=== PATIENT | female | born 1985 | race Caucasian/White ===

== ENCOUNTER 2016-08-22 01:30 | Emergency (ER) | payer MEDICAID ==
[2016-08-22 01:33] VITALS: BP 144/82; PULSE 132; RESP 18; TEMP 98.5; O2SAT 100
[2016-08-22 01:43] VITALS: RESP 20; O2SAT 100
[2016-08-22] MEDS ORDERED: TRAZ50TA12 PO (01:43)
[2016-08-22] MEDS ORDERED: BUSP5TAB PO (01:43)
[2016-08-22 01:44] VITALS: BP_SYST 130; BP_SYST 136; BP_DIAS 79; BP_DIAS 83
[2016-08-22] MEDS ORDERED: ASPIRIN 81 MG CHEW TAB PO ONE (01:45)
[2016-08-22] MEDS ORDERED: LORazepam 2 MG/ML VIAL IV PUSH ONE (01:45)
[2016-08-22] MEDS ORDERED: SODIUM CHLORIDE 0.9% FLUSH 5 ML FLUSH IVF PRN (01:45)
--- NOTE | 2016-08-22 01:54 | PD ---
HPI . Chest pain and shortness of breath Chief Complaint: Alcohol/Drug Intoxication Time Seen by Provider: 01:39 Travel History International Travel<30 days: No Contact w/Intl Traveler<30days: No History of Present Illness HPI Patient presents complaining with chest pain shortness of breath which started after using meth and Percocet. She states that her mouth feels dry. She states that she feels like she is going to . PFSH Past Medical History Medical History: Denies Significant Hx Diminished Hearing: No Tetanus Vaccination: Unknown Influenza Vaccination: No ?: Unknown : 4 Para: 2 Miscarriage: 0 : 1 Past Surgical History Surgical History: No Previous Surgery Section: Yes (x 2) Social History Alcohol Use: No Tobacco Use: Yes Substance Use: No Allergies-Medications (Allergen,Severity, Reaction): Coded Allergies: No Known Allergies (Unverified , 08/22/16) Reported Meds & Prescriptions Reported Meds & Active Scripts Active Reported Trazodone (Trazodone HCl) 50 Mg Tab 50 Mg PO HS Buspirone (Buspirone HCl) 5 Mg Tab 5 Mg PO BID Review of Systems Except as stated in HPI: all other systems reviewed are Neg General / Constitutional: No: Fever, Chills HENT: Positive: Other (dry mouth) Cardiovascular: Positive: Chest Pain or Discomfort Respiratory: Positive: Shortness of Breath Psychiatric: Positive: Anxiety, Substance Abuse Physical Exam Narrative GENERAL: Anxious appearing female SKIN: Warm and dry. HEAD: Atraumatic. Normocephalic. EYES: Pupils equal and round. ENT: No nasal bleeding or discharge. Mucous membranes pink and moist. NECK: Trachea midline. CARDIOVASCULAR: Sinus tachycardia. RESPIRATORY: No accessory muscle use. Lungs are clear with full air movement throughout. GASTROINTESTINAL: Abdomen soft, non-tender, nondistended. MUSCULOSKELETAL: No obvious deformities. No edema. NEUROLOGICAL: Awake and alert. No obvious cranial nerve deficits. Motor grossly within normal limits. Normal speech. PSYCHIATRIC: Appropriate mood and affect; insight and judgment poor. Data Data Last Documented VS Vital Signs Date Time Temp Pulse Resp B/P Pulse Ox O2 Delivery O2 Flow Rate FiO2 08/22/16 01:44 130/83 136/79 08/22/16 01:43 20 100 Room Air 08/22/16 01:40 123 08/22/16 01:33 98.5 Orders Electrocardiogram (08/22/16 01:39) Basic Metabolic Panel (Bmp) (08/22/16 01:39) Ckmb (Isoenzyme) Profile (08/22/16 01:39) Complete Blood Count With Diff (08/22/16 01:39) Magnesium (Mg) (08/22/16 01:39) Troponin I (08/22/16 01:39) Chest, Single Ap (08/22/16 01:39) Ecg Monitoring (08/22/16 01:39) Bilateral Bp Monitoring (08/22/16 01:39) Iv Access Insert/Monitor (08/22/16 01:39) Oximetry (08/22/16 01:39) Oxygen Administration (08/22/16 01:39) Aspirin Chew (Aspirin Chew) (08/22/16 01:45) Sodium Chloride 0.9% Flush (Ns Flush) (08/22/16 01:45) Lorazepam Inj (Ativan Inj) (08/22/16 01:45) Ed Urine Pregnancytest Poc (08/22/16 01:39) Labs Laboratory Tests Test 08/22/16 01:55 White Blood Count 8.8 TH/MM3 Red Blood Count 4.93 MIL/MM3 Hemoglobin 13.9 GM/DL Hematocrit 40.9 % Mean Corpuscular Volume 83.0 FL Mean Corpuscular Hemoglobin 28.3 PG Mean Corpuscular Hemoglobin 34.1 % Concent Red Cell Distribution Width 13.9 % Platelet Count 300 TH/MM3 Mean Platelet Volume 6.7 FL Neutrophils (%) (Auto) 71.5 % Lymphocytes (%) (Auto) 20.9 % Monocytes (%) (Auto) 7.0 % Eosinophils (%) (Auto) 0.5 % Basophils (%) (Auto) 0.1 % Neutrophils # (Auto) 6.3 TH/MM3 Lymphocytes # (Auto) 1.8 TH/MM3 Monocytes # (Auto) 0.6 TH/MM3 Eosinophils # (Auto) 0.0 TH/MM3 Basophils # (Auto) 0.0 TH/MM3 CBC Comment DIFF FINAL Differential Comment Sodium Level 134 MEQ/L Potassium Level 3.0 MEQ/L Chloride Level 98 MEQ/L Carbon Dioxide Level 26.9 MEQ/L Anion Gap 9 MEQ/L Blood Urea Nitrogen 6 MG/DL Creatinine 0.73 MG/DL Estimat Glomerular Filtration 93 ML/MIN Rate Random Glucose 132 MG/DL Calcium Level 8.9 MG/DL Magnesium Level 1.8 MG/DL Total Creatine Kinase 97 U/L Troponin I LESS THAN 0.02 NG/ML MDM Medical Decision Making Medical Screen Exam Complete: Yes Emergency Medical Condition: Yes Interpretation(s) EKG shows sinus tachycardia at 119. No ST segment elevation or depression. No old EKGs for comparison. Differential Diagnosis Differential diagnosis of chest pain includes but is not limited to musculoskeletal pain, pulmonary embolism, acute coronary syndrome, pneumonia, pleurisy Narrative Course Patient presents for evaluation of chest pain, shortness of breath and dry mouth after using methamphetamine and Percocet. CBC is normal. Cardiac enzymes are negative. Chest x-ray to my interpretation is negative for infiltrate, pneumothorax or pulmonary edema. Chest x-ray has subsequently been read by the radiologist as negative. Is patient is stable for discharge to home. Critical Care Narrative Aggregate critical care time was 30 minutes. Time to perform other separately billable procedures was not included in the critical care time. My time did not include minutes spent treating any other patients simultaneously or on activities that did not directly contribute to the patient's treatment. The services I provided to this patient were to treat and/or prevent clinically significant deterioration that could result in: Cardiac dysrhythmia, sudden cardiac , ACS I provided critical care services requiring my management, as noted below: Chart data review, documentation time, medication orders and management, vital sign assessments/reviewing monitor data, ordering and reviewing lab tests, ordering and interpreting/reviewing x-rays and diagnostic studies, care of the patient and discussion of the patient with the admitting physicians. Diagnosis Primary Impression: Chest pain Qualified Code: R07.9 - Chest pain, unspecified type Additional Impression: Substance abuse Patient Instructions: Chest Pain (ED), General Instructions, Medical Clearance for Substance Abuse Treatment (ED), Noncardiac Chest Pain (ED) Disposition: 01 DISCHARGE HOME Condition: Stable Janny Jain MD Aug 22, 2016 01:53
[2016-08-22 02:00] LABS: AUTOMATED NEUTROPHIL # 6.3 TH/MM3 (1.8-7.7); BASOPHIL % 0.1 % (0.0-2.0); EOSINOPHIL % 0.5 % (0.0-4.0); HEMATOCRIT 40.9 % (35.0-46.0); HEMO FLAGS DIFF FINAL; LYMPH % 20.9 % (9.0-44.0); LYMPHOCYTE # 1.8 TH/MM3 (1.0-4.8); MEAN CORPUSCULAR HEMOGLOBIN 28.3 PG (27.0-34.0); MEAN CORPUSCULAR HGB CONC 34.1 % (32.0-36.0); NEUT % 71.5 % (16.0-70.0); PLATELET COUNT 300 TH/MM3 (150-450); RED BLOOD COUNT 4.93 MIL/MM3 (4.00-5.30); RED CELL DISTRIBUTION WIDTH 13.9 % (11.6-17.2); WHITE BLOOD COUNT 8.8 TH/MM3 (4.0-11.0)
[2016-08-22 02:19] LABS: ANION GAP 9 MEQ/L (5-15); BICARBONATE 26.9 MEQ/L (21.0-32.0); BLOOD UREA NITROGEN 6 MG/DL (7-18); CHLORIDE 98 MEQ/L (98-107); GLOMERULAR FILTRATION RATE 93 ML/MIN (>89); MAGNESIUM 1.8 MG/DL (1.5-2.5); SODIUM (NA) 134 MEQ/L (136-145)
[2016-08-22 02:26] LABS: CREATINE KINASE 97 U/L (26-192)
--- NOTE | 2016-08-22 02:50 | RADRPT ---
EXAM DATE/TIME: 08/22/2016 02:04 [facility] COMPARISON: No previous studies available for comparison. INDICATIONS : Short of breath. MEDICAL HISTORY : None. SURGICAL HISTORY : Tubal ligation. ENCOUNTER: Initial ACUITY: 1 day PAIN SCORE: 0/10 LOCATION: Bilateral chest FINDINGS: A single view of the chest demonstrates the lungs to be symmetrically aerated without evidence of mas s, infiltrate or effusion. The cardiomediastinal contours are unremarkable. Osseous structures are intact. CONCLUSION: No acute disease. Khanh Cornell MD on August 22, 2016 at 2:48 Board Certified Radiologist. This report was verified electronically.
--- NOTE | 2016-08-22 19:54 | EKG ---
Date Performed: 08/22/2016 Time Performed: 01:43:04 PTAGE: 31 years EKG: SINUS TACHYCARDIA NONSPECIFIC ST & T-WAVE ABNORMALITY ABNORMAL RHYTHM ECG PREVIOUS TRACING : 09/01/2001 14.54 Compared to the previous tracing, rate faster DOCTOR: Susie Gould Interpretating Date/Time 08/22/2016 19:52:55
== END 2016-08-22 03:44 | disposition home or self-care (01) ==
LOC: NEPC 01:30
DX: R07.9 Chest pain, unspecified (principal); R06.02 Shortness of breath; F15.10 Other stimulant abuse, uncomplicated; F19.10 Other psychoactive substance abuse, uncomplicated; Z72.0 Tobacco use
CPT/HCPCS: 71010; 80048; 82550; 83735; 84484; 84703; 85025; 93005; 96374; 99291; J2060

== ENCOUNTER 2016-09-30 01:08 | Emergency (ER) | payer MEDICAID ==
[~2016-09-30] VITALS: Ht 152.4 cm; Wt 55.0 kg
[~2016-09-30 01:08] MED LIST: BUSP5TAB PO; TRAZ50TA12 PO
[2016-09-30 01:12] VITALS: BP 139/86; PULSE 124; RESP 18; TEMP 98.3; O2SAT 100
[2016-09-30] MEDS ORDERED: IBUP-232 PO (01:39)
--- NOTE | 2016-09-30 01:39 | PD ---
HPI Chief Complaint: Laceration/Skin Injury Time Seen by Provider: 01:38 Travel History International Travel<30 days: No Contact w/Intl Traveler<30days: No Traveled to known affect area: No History of Present Illness HPI 31-year-old female presents to emergency department for evaluation of a laceration sustained to her left anterior forearm when she fell carrying a knife. Patient states she was putting away dishes when this happened. She slipped on the floor where there was water. Patient reports moderate pain at the site. No alteration to sensation the distal extremity. No limitations in range of motion. She is not up-to-date on her tetanus vaccination. [facility], [facility] Past Medical History Medical History: Denies Significant Hx Diminished Hearing: No : 4 Para: 2 Miscarriage: 0 : 1 Past Surgical History Section: Yes (x 2) Social History Alcohol Use: No Tobacco Use: Yes Substance Use: No Allergies-Medications (Allergen,Severity, Reaction): Coded Allergies: No Known Allergies (Unverified , 09/30/16) Reported Meds & Prescriptions Reported Meds & Active Scripts Active Ibuprofen 600 Mg Tab 600 Mg PO Q8HR PRN Reported Trazodone (Trazodone HCl) 50 Mg Tab 50 Mg PO HS Buspirone (Buspirone HCl) 5 Mg Tab 5 Mg PO BID Review of Systems Except as stated in HPI: all other systems reviewed are Neg Physical Exam Narrative GENERAL: Well-nourished, well-developed female patient, ambulatory no acute distress SKIN: Warm and dry. 5 cm laceration on the anterior forearm. Bleeding is controlled HEAD: Normocephalic. EYES: No scleral icterus. No injection or drainage. NECK: Supple, trachea midline. No JVD or lymphadenopathy. CARDIOVASCULAR: Regular rate and rhythm without murmurs, gallops, or rubs. RESPIRATORY: Breath sounds equal bilaterally. No accessory muscle use. GASTROINTESTINAL: Abdomen soft, non-tender, nondistended. MUSCULOSKELETAL: No cyanosis. Mild swelling on the posterior left forearm.. 5 + strength equal bilateral extremities. Sensation intact distal affected extremity. BACK: Nontender without obvious deformity. No CVA tenderness. Data Data Last Documented VS Vital Signs Date Time Temp Pulse Resp B/P Pulse Ox O2 Delivery O2 Flow Rate FiO2 09/30/16 01:12 98.3 124 18 139/86 100 Room Air Orders Tetanus/Diphtheria Tox Adult (Tetanus/Di (09/30/16 01:45) Lidocai-Epi 1%-1:100,000 Inj (Xylocaine- (09/30/16 01:45) Forearm (2vws) (09/30/16 ) MDM Medical Decision Making Medical Screen Exam Complete: Yes Emergency Medical Condition: Yes Medical Record Reviewed: Yes Differential Diagnosis Laceration superficial versus deep versus abrasion versus ulcer versus tendon injury versus open fracture versus vascular injury Narrative Course 31-year-old female presents to emergency department for evaluation of a laceration to the left anterior forearm. X-ray imaging is with a soft tissue injury, no acute bony abnormality. Wound is cleansed and approximated without difficulty. Extremity is neurovascularly intact. Patient is discharged home to follow up with a primary care provider. She agrees to return immediately with any acute worsening of symptoms. Procedures Procedure Narrative LACERATION LOCATION: Left anterior forearm LENGTH: 5 cm NUMBER OF STITCHES/EDGAR: 6 sutures REPAIR: The area of the laceration was prepped with Betadine and sterilely draped. The laceration was infiltrated with 1% lidocaine with epinephrine. The wound was copiously irrigated and explored without evidence of foreign body , tendon injury or neurovascular injury. The wound was closed using 4-0 Prolene. This was a single layer repair. A sterile dressing was applied. The patient was advised to keep the dressing clean and dry. Patient tolerated the procedure well. Diagnosis Primary Impression: Laceration of forearm, left Qualified Code: S51.812A - Laceration of forearm, left, initial encounter Referrals: Primary Care Physician Patient Instructions: General Instructions, Laceration (ED) Additional Instructions: Keep the area clean and dry Follow-up with primary care provider Sutures are to be removed in 10 days. This can be done in the emergency department with primary care provider's office Return immediately with any acute worsening symptoms Med/Other Pt SpecificInfo: Prescription(s) given Scripts Ibuprofen 600 Mg [id number] Mg PO Q8HR PRN (PAIN) #30 TAB Ref 0 Prov:Arlene Bedoya 09/30/16 Disposition: 01 DISCHARGE HOME Condition: Stable Arlene Bedoya Sep 30, 2016 01:39
[2016-09-30] MEDS ORDERED: LIDOCAINE 1%/EPINEPHrine 1:100,000 SOLN 20 ML VIAL INFIL ONE (01:45)
[2016-09-30] MEDS ORDERED: TETANUS/DIPHTHERIA TOXOID ADULT 0.5 ML VIAL IM ONE (01:45)
--- NOTE | 2016-09-30 02:22 | RADRPT ---
EXAM DATE/TIME: 09/30/2016 02:09 [facility] COMPARISON: No previous studies available for comparison. INDICATIONS : Knife laceration to left forearm. MEDICAL HISTORY : None. SURGICAL HISTORY : Tubal ligation. ENCOUNTER: Initial ACUITY: 1 day PAIN SCORE: 3/10 LOCATION: Left forearm FINDINGS: Two view examination of the left forearm demonstrates no evidence of fracture or dislocation. Bony m ineralization is normal. The soft tissue structures reveal mild irregularity of the subcutaneous fat skin dorsal mid forearm. CONCLUSION: Soft tissue injury. Normal bones. Ariel Oliveira MD on September 30, 2016 at 2:20 Board Certified Radiologist. This report was verified electronically.
== END 2016-09-30 03:37 | disposition home or self-care (01) ==
LOC: NEPB 01:08
DX: S51.812A Laceration without foreign body of left forearm, initial encounter (principal); Z23 Encounter for immunization; W26.0XXA Contact with knife, initial encounter; W18.30XA Fall on same level, unspecified, initial encounter; Y93.89 Activity, other specified; Y92.9 Unspecified place or not applicable; Z72.0 Tobacco use
CPT/HCPCS: 12002; 73090; 90471; 90714